=== PATIENT | female | born 1995 | race Caucasian/White ===

== ENCOUNTER 2016-02-15 21:56 | Emergency (ER) | payer SELFPAY ==
[~2016-02-15] VITALS: Ht 160 cm; Wt 100.5 kg
[2016-02-15 21:59] VITALS: Ht 160 cm; Wt 100.5 kg
--- NOTE | 2016-02-16 00:19 | RADRPT ---
PROCEDURE: Obstetrical ultrasound. CLINICAL INDICATION: Pelvic pain. TECHNIQUE: Multiple sonographic images of the pelvis were obtained with transabdominal and endova ginal technique. Images were obtained with reeves scale and color Doppler. COMPARISON: No prior studies are available for comparison. FINDINGS: No abnormal uterine mass is identified. There is an intrauterine gestational sac with a pole i dentified. heart tones of 118 beats per minute are identified. The crown-rump length ave rages 0.51 cm, compatible with 6 weeks and 2 days. The mean sac diameter averages 1.23 cm, compatibl e with 6 weeks and 0 days. A yolk sac is identified. No subchorionic collection is identified. There is no pelvic free fluid. The right ovary measures 2.7 x 2.2 x 1.9 cm and the left ovary measur es 3.9 x 2.8 x 3.1 cm. There is normal flow to both ovaries. There is no suspicious adnexal mass reanna ntified. IMPRESSION: Single live intrauterine with an estimated gestational age of 6 weeks and 1 day, with an u [facility] of 10/09/2016. .Walter Tamayo MD, MD Date Time Electronically viewed and signed by .Walter Tamayo MD, MD on 02/16/2016 00:19 .T/
== END 2016-02-16 00:45 | disposition left against medical advice (07) ==
LOC: FTE 21:56
DX: Z53.21 Procedure and treatment not carried out due to patient leaving prior to being seen by health care provider (principal)
CPT/HCPCS: 76801; 76817